=== PATIENT | male | born 1970 | race African-American/Black ===

== ENCOUNTER 2021-10-31 11:00 | Emergency (ER) | payer SELFPAY ==
[2021-10-31] MEDS ORDERED: Benzocaine 20% Topical Spray UD MUCMEM ONE (11:15)
[2021-10-31] MEDS ORDERED: Lidocaine 2% Viscous Solution 15 ML UD PO ONE (11:15)
== END 2021-10-31 11:40 | disposition home or self-care (01) ==
LOC: MW.ED 11:00
DX: K04.7 Periapical abscess without sinus (principal); Z79.899 Other long term (current) drug therapy; Z91.013 Allergy to seafood
CPT/HCPCS: 99282; A9270; 99283